=== PATIENT | male | born 1965 | race American Indian/Alaskan Native ===

== ENCOUNTER 2023-01-25 10:39 | Emergency (ER) | payer OTHER, BC ==
[~2023-01-25] VITALS: Ht 152.4 cm; Wt 102.1 kg
[~2023-01-25 10:39] MED LIST: BUTRANS1 EAC1; CELEXA10 MG; GEODON20 MG; LORAZEPAM0.5 MG; NUCYNTA50 MG
== END 2023-01-25 15:32 | disposition home or self-care (01) ==
LOC: ER 10:39
DX: M54.9 Dorsalgia, unspecified (principal)
CPT/HCPCS: 72100; 96372; 99283; J1885; J2360

== ENCOUNTER 2023-08-02 11:21 | Emergency (ER) | payer OTHER ==
[~2023-08-02] VITALS: Ht 177.8 cm; Wt 90.7 kg
== END 2023-08-02 16:33 | disposition home or self-care (01) ==
LOC: ER 11:22
DX: S61.012A Laceration without foreign body of left thumb without damage to nail, initial encounter (principal); W26.0XXA Contact with knife, initial encounter; Y93.89 Activity, other specified; Y92.89 Other specified places as the place of occurrence of the external cause; Y99.8 Other external cause status

== ENCOUNTER 2023-11-24 11:12 | Inpatient (IN) | payer OTHER ==
[~2023-11-24] VITALS: Ht 177.8 cm; Wt 85.3 kg
[~2023-11-24 11:12] MED LIST changes: +APLENZIN174 MG; +CITALOPRAM20 MG/10 M; +CLONAZEPAM0.125 MG PO; +DIVALPROEX SODI25 GM; +EZALLOR SPRINKLE5 MG; +FENOFIBRATE40 MG; +LAMOTRIGINE5 MG; +QUETIAPINE FUM400 M1; +TIROSINT13 MCG; +ZESTRIL2.5 MG
--- NOTE | 2023-11-24 11:45 | NUR ---
PACIENTE MASCULINO ALERTA Y ORIENTADO SOLAMENTE EN PERSONA, REFIERE LA ESPOSA QUE SUFRIO CAIDA EL JEISON Y SE LASTIMO EL BRAZO KARMEN SE OBSERVA EDEMATOSO Y ROJIZO. HOY SE LEVANTO DESORINETADO Y ALUCINANDO. ES DE DR. PARAM MILLER.
--- NOTE | 2023-11-24 11:56 | NUR ---
SE ORIENTA PTE SOBRE TX A SEGUIR, EL CUAL REFIERE ENTENDER. SE COLECTAN MUESTRAS UTILIZANDO UTILIZANDO MEDIDAS ASEPTICAS. PEND CT DE LETICIA. SE HACE ENTREGA DE ENVASE DE MUESTRA DE UA.
[2023-11-24 12:40] LABS: HEMATOCRIT 38.3 % (39.0-48.0); MEAN CELL VOLUME 95.8 fL (80.0-100.00); MEAN CORPUSCULAR HEMOGLOBIN 32.4 pg (27.00-32.0); MEAN CORPUSCULAR HGB CONC 33.9 g/dl (32.0-36.0); PLATELET COUNT 141 K/uL (150-450); RED CELL DISTRIBUTION WIDTH 12.7 % (11.5-14.5)
[2023-11-24 12:56] LABS: ALBUMIN 2.4 gm/dL (3.4-5.0); BILIRUBIN TOTAL 1.73 mg/dL (0.3-1.2); CALCIUM 8.5 mg/dL (8.5-10.1); GFR 13.87; GLOBULINA 3.3 G/DL (2.4-3.5); POTASSIUM 4.02 mEq/L (3.5-5.1); TOTAL PROTEIN 5.7 gm/dL (6.4-8.2)
[2023-11-24 12:57] LABS: CREATININE SERUM 4.43 mg/dL (0.70-1.30)
[2023-11-24 13:00] LABS: URINE APPEARANCE Turbid; URINE BILIRRUBIN Moderate (NEGATIVE); URINE BLOOD Trace; URINE COLOR Dark Yellow; URINE GLUCOSE Negative (NEGATIVE); URINE LEUKOCYTE Small; URINE NITRATE Negative
[2023-11-24 13:01] LABS: URINE BACTERIA 401.9 uL (0.0-1933); URINE EPITHELIAL CELLS 35.2 uL (0.0-38.8); URINE RBC 29.1 uL (0.0-20.8); URINE WBC 119.5 uL (0.0-23.2)
[2023-11-24 13:13] LABS: URINE PROTEIN 100 (NEGATIVE)
[2023-11-24] MEDS ORDERED: 0.9 % SODIUM CHLORIDE 1,000 ML IV SCH ×2 (13:15→18:45)
[2023-11-24] MEDS ORDERED: CEFTRIAXONE SODIUM 2,000 MG VIAL IV ONE (13:15)
[2023-11-24] MEDS ORDERED: CEFTRIAXONE SODIUM 2,000 MG VIAL ONE (13:25)
[2023-11-24] MEDS ORDERED: 0.9 % SODIUM CHLORIDE 1,000 ML IV ONE (18:45)
[2023-11-24] MEDS ORDERED: LAMOTRIGINE PO SCH (18:52)
[2023-11-24] MEDS ORDERED: DIVALPROEX SODIUM 500 MG TAB.ER.24H PO SCH (18:53)
[2023-11-24] MEDS ORDERED: ONDANSETRON HCL 4 MG in 0.9 % SODIUM CHLORIDE 50 ML IV PRN (19:00)
[2023-11-24] MEDS ORDERED: ACETAMINOPHEN 500 MG GEL..CAP PO PRN (19:00)
[2023-11-24 20:40] LABS: MAGNESIUM 2.2 mg/dL (1.8-2.4); PHOSPHOROUS 4.7 mg/dL (2.5-4.9)
[2023-11-24 20:53] LABS: C-REACTIVE PROTEIN 46.4 MG/DL (0.00-0.29)
[2023-11-24 21:31] LABS: INR 1.34; PROTHROMBIN TIME 13.8 SECONDS (9.0-11.5)
[2023-11-24 21:32] LABS: D DIMER 1.07 MG/L; PARTIAL THROMBOPLASTIN TIME 39.6 SECONDS (22.0-34.0)
[2023-11-25] MEDS ORDERED: LEVOTHYROXINE SODIUM 100 MCG TABLET PO SCH (06:00)
[2023-11-25] MEDS ORDERED: CEFTRIAXONE SODIUM 2,000 MG in 0.9 % SODIUM CHLORIDE 100 ML IV SCH (09:00)
[2023-11-25] MEDS ORDERED: FAMOTIDINE/PF 20 MG in 0.9 % SODIUM CHLORIDE 8 ML IV PUSH SCH (09:00)
[2023-11-25] MEDS ORDERED: ENOXAPARIN SODIUM 30 MG/0.3 ML SYRINGE SUBCUTANEO SCH (09:00)
[2023-11-25] MEDS ORDERED: CITALOPRAM PO SCH (09:00)
[2023-11-25] MEDS ORDERED: PATIENTS OWN MEDICATION (MEDICAMENTO EN PISO) PO SCH (09:00)
[2023-11-25] MEDS ORDERED: QUETIAPINE FUMARATE 100 MG TABLET PO SCH ×2 (09:00→21:00)
[2023-11-25] MEDS ORDERED: CLONAZEPAM 1 MG TABLET PO SCH (09:00)
[2023-11-25] MEDS ORDERED: FAMOTIDINE/PF 20 MG/2 ML VIAL ONE (09:36)
[2023-11-25] MEDS ORDERED: 0.9 % SODIUM CHLORIDE 1,000 ML IV SCH (15:00)
[2023-11-25 15:02] LABS: ALBUMIN 1.9 gm/dL (3.4-5.0); BILIRUBIN TOTAL 1.64 mg/dL (0.3-1.2); CREATININE SERUM 2.92 mg/dL (0.70-1.30); GFR 22.44; GLOBULINA 3.1 G/DL (2.4-3.5); MAGNESIUM 2.5 mg/dL (1.8-2.4); PHOSPHOROUS 4.2 mg/dL (2.5-4.9); POTASSIUM 3.9 mEq/L (3.5-5.1)
[2023-11-25] MEDS ORDERED: FF) Daptomycin 500 MG/VIAL IV SCH (17:00)
[2023-11-25] MEDS ORDERED: CEFEPIME HCL 1,000 MG VIAL IV SCH (17:00)
[2023-11-25] MEDS ORDERED: CLINDAMYCIN PHOSPHATE 150 MG/ML (600mg) IV SCH (17:00)
[2023-11-25 18:47] LABS: HEMATOCRIT 37.1 % (39.0-48.0); HEMOGLOBIN 12.5 g/dL (13-16.00); MEAN CELL VOLUME 96.7 fL (80.0-100.00); MEAN CORPUSCULAR HEMOGLOBIN 32.6 pg (27.00-32.0); MEAN CORPUSCULAR HGB CONC 33.8 g/dl (32.0-36.0); RED BLOOD COUNT 3.84 M/uL (4.00-6.00); RED CELL DISTRIBUTION WIDTH 12.5 % (11.5-14.5)
[2023-11-25 19:42] LABS: PLATELET COUNT 107 K/uL (150-450)
[2023-11-26 06:58] LABS: ALBUMIN 1.7 gm/dL (3.4-5.0); BILIRUBIN TOTAL 1.41 mg/dL (0.3-1.2); CALCIUM 8.1 mg/dL (8.5-10.1); CREATININE SERUM 2.44 mg/dL (0.70-1.30); GFR 27.61; GLOBULINA 2.9 G/DL (2.4-3.5); MAGNESIUM 2.8 mg/dL (1.8-2.4); POTASSIUM 3.32 mEq/L (3.5-5.1); TOTAL PROTEIN 4.6 gm/dL (6.4-8.2)
[2023-11-26 07:13] LABS: HEMATOCRIT 35.8 % (39.0-48.0); HEMOGLOBIN 12.2 g/dL (13-16.00); MEAN CELL VOLUME 94.6 fL (80.0-100.00); MEAN CORPUSCULAR HEMOGLOBIN 32.2 pg (27.00-32.0); MEAN CORPUSCULAR HGB CONC 34.1 g/dl (32.0-36.0); RED BLOOD COUNT 3.79 M/uL (4.00-6.00); RED CELL DISTRIBUTION WIDTH 12.8 % (11.5-14.5)
[2023-11-26 07:37] LABS: INR 1.67
[2023-11-26 07:39] LABS: PARTIAL THROMBOPLASTIN TIME 53.1 SECONDS (22.0-34.0); PROTHROMBIN TIME 16.9 SECONDS (9.0-11.5)
[2023-11-26 08:07] LABS: PLATELET COUNT 73 K/uL (150-450)
[2023-11-26] MEDS ORDERED: PATIENTS OWN MEDICATION (MEDICAMENTO EN PISO) PO SCH (09:00)
[2023-11-26] MEDS ORDERED: MEROPENEM 500 MG/VIAL VIAL IV SCH (17:00)
[2023-11-27 07:18] LABS: PH,URINE 5.5 (5.0-8.0); URINE APPEARANCE Clear; URINE BILIRRUBIN Negative (NEGATIVE); URINE BLOOD Small; URINE COLOR Yellow; URINE GLUCOSE Negative (NEGATIVE); URINE LEUKOCYTE Small; URINE NITRATE Negative; URINE PROTEIN Negative (NEGATIVE)
[2023-11-27 07:23] LABS: URINE BACTERIA 65.4 uL (0.0-1933); URINE EPITHELIAL CELLS 6.3 uL (0.0-38.8); URINE RBC 59.5 uL (0.0-20.8); URINE WBC 161.3 uL (0.0-23.2)
[2023-11-27 10:13] LABS: HEMATOCRIT 31.7 % (39.0-48.0); MEAN CELL VOLUME 94.4 fL (80.0-100.00); MEAN CORPUSCULAR HGB CONC 34.4 g/dl (32.0-36.0); RED BLOOD COUNT 3.36 M/uL (4.00-6.00); RED CELL DISTRIBUTION WIDTH 13.3 % (11.5-14.5)
[2023-11-27 10:14] LABS: ALBUMIN 1.3 gm/dL (3.4-5.0); BILIRUBIN TOTAL 1.34 mg/dL (0.3-1.2); CALCIUM 8.4 mg/dL (8.5-10.1); CREATININE SERUM 1.81 mg/dL (0.70-1.30); GFR 38.98; POTASSIUM 3.72 mEq/L (3.5-5.1); TOTAL PROTEIN 4.3 gm/dL (6.4-8.2)
[2023-11-27 11:22] LABS: HEMOGLOBIN 10.9 g/dL (13-16.00); MEAN CORPUSCULAR HEMOGLOBIN 32.4 pg (27.00-32.0); PLATELET COUNT 45 K/uL (150-450)
[2023-11-27] MEDS ORDERED: PANTOPRAZOLE SODIUM 40 MG/VIAL VIAL IV SCH (17:00)
[2023-11-27] MEDS ORDERED: FF) Daptomycin 500 MG/VIAL IV SCH (18:00)
[2023-11-28 09:19] LABS: HEMOGLOBIN 11.7 g/dL (13-16.00); MEAN CELL VOLUME 96.7 fL (80.0-100.00); MEAN CORPUSCULAR HEMOGLOBIN 32.4 pg (27.00-32.0); MEAN CORPUSCULAR HGB CONC 33.5 g/dl (32.0-36.0); RED BLOOD COUNT 3.61 M/uL (4.00-6.00); RED CELL DISTRIBUTION WIDTH 13.4 % (11.5-14.5)
[2023-11-28 11:28] LABS: PLATELET COUNT 36 K/uL (150-450)
[2023-11-29 09:52] LABS: ALBUMIN 1.4 gm/dL (3.4-5.0); BILIRUBIN TOTAL 1.43 mg/dL (0.3-1.2); CALCIUM 8.6 mg/dL (8.5-10.1); CREATININE SERUM 2.15 mg/dL (0.70-1.30); GFR 31.95; POTASSIUM 3.12 mEq/L (3.5-5.1); TOTAL PROTEIN 4.4 gm/dL (6.4-8.2)
[2023-11-29 10:26] LABS: HEMOGLOBIN 10.9 g/dL (13-16.00); MEAN CELL VOLUME 94.7 fL (80.0-100.00); MEAN CORPUSCULAR HEMOGLOBIN 32.2 pg (27.00-32.0); RED BLOOD COUNT 3.38 M/uL (4.00-6.00); RED CELL DISTRIBUTION WIDTH 13.5 % (11.5-14.5)
[2023-11-29 11:33] LABS: PLATELET COUNT 33 K/uL (150-450)
[2023-11-29] MEDS ORDERED: RINGERS SOLUTION,LACTATED 1,000 ML IV SCH (16:15)
[2023-11-29] MEDS ORDERED: AMINO ACIDS/PROTEIN HYDROLYS 30 ML BLIST.PACK PO SCH (20:49)
[2023-11-29] MEDS ORDERED: FF) Daptomycin 500 MG/VIAL IV SCH (21:00)
[2023-11-30 09:19] LABS: HEMATOCRIT 29.5 % (39.0-48.0); HEMOGLOBIN 10.2 g/dL (13-16.00); MEAN CELL VOLUME 94.2 fL (80.0-100.00); MEAN CORPUSCULAR HEMOGLOBIN 32.5 pg (27.00-32.0); MEAN CORPUSCULAR HGB CONC 34.5 g/dl (32.0-36.0); RED BLOOD COUNT 3.13 M/uL (4.00-6.00); RED CELL DISTRIBUTION WIDTH 13.3 % (11.5-14.5)
[2023-11-30 09:42] LABS: ALBUMIN 1.6 gm/dL (3.4-5.0); BILIRUBIN TOTAL 1.32 mg/dL (0.3-1.2); CALCIUM 8.5 mg/dL (8.5-10.1); CREATININE SERUM 1.89 mg/dL (0.70-1.30); GFR 37.08; GLOBULINA 3.4 G/DL (2.4-3.5); MAGNESIUM 1.8 mg/dL (1.8-2.4)
[2023-11-30 09:44] LABS: LDH 255 U/L (87-241); PHOSPHOKINASE CREATININE 33 U/L (39-308)
[2023-11-30 10:01] LABS: POTASSIUM 2.99 mEq/L (3.5-5.1)
[2023-11-30 11:06] LABS: PLATELET COUNT 113 K/uL (150-450)
[2023-11-30] MEDS ORDERED: POTASSIUM CHLORIDE IN WATER 100 ML IV NR (11:30)
[2023-11-30] MEDS ORDERED: Cyanocobalamin/Mecobalamin 1 TAB.SL SL SCH (12:00)
[2023-11-30 12:02] LABS: HEMATOCRIT 30.4 % (39.0-48.0); HEMOGLOBIN 10.4 g/dL (13-16.00); MEAN CELL VOLUME 94.1 fL (80.0-100.00); MEAN CORPUSCULAR HEMOGLOBIN 32.2 pg (27.00-32.0); MEAN CORPUSCULAR HGB CONC 34.2 g/dl (32.0-36.0); RED BLOOD COUNT 3.23 M/uL (4.00-6.00); RED CELL DISTRIBUTION WIDTH 13.3 % (11.5-14.5)
[2023-11-30 12:04] LABS: PLATELET COUNT 120 K/uL (150-450)
[2023-11-30] MEDS ORDERED: VITAMIN B COMPLEX 1 EACH PO SCH (17:00)
[2023-11-30] MEDS ORDERED: THIAMINE HCL 100 MG TABLET PO SCH (17:00)
[2023-12-01 08:20] LABS: HEMATOCRIT 28.1 % (39.0-48.0); HEMOGLOBIN 9.6 g/dL (13-16.00); MEAN CELL VOLUME 95.6 fL (80.0-100.00); MEAN CORPUSCULAR HEMOGLOBIN 32.7 pg (27.00-32.0); MEAN CORPUSCULAR HGB CONC 34.2 g/dl (32.0-36.0); RED BLOOD COUNT 2.94 M/uL (4.00-6.00); RED CELL DISTRIBUTION WIDTH 12.9 % (11.5-14.5)
[2023-12-01 09:01] LABS: INR 1.76
[2023-12-01 09:05] LABS: PROTHROMBIN TIME 17.7 SECONDS (9.0-11.5)
[2023-12-01 09:06] LABS: PARTIAL THROMBOPLASTIN TIME 46.9 SECONDS (22.0-34.0)
[2023-12-01 09:07] LABS: FERRITIN 1656.9 NG/ML (26-388)
[2023-12-01 09:16] LABS: PLATELET COUNT 198 K/uL (150-450)
[2023-12-01 09:28] LABS: ALBUMIN 1.4 gm/dL (3.4-5.0); CALCIUM 8.1 mg/dL (8.5-10.1); CREATININE SERUM 1.39 mg/dL (0.70-1.30); GFR 52.86; MAGNESIUM 1.7 mg/dL (1.8-2.4); PHOSPHOROUS 2.8 mg/dL (2.5-4.9); POTASSIUM 3.33 mEq/L (3.5-5.1)
[2023-12-01 10:15] LABS: FOLIC ACID 15.39 ng/ml (4.78-20)
[2023-12-01] MEDS ORDERED: MAGNESIUM SULFATE IN WATER 2 GM/50 ML PIGGYBAG IV NR (15:45)
[2023-12-01] MEDS ORDERED: POTASSIUM CHLORIDE IN WATER 100 ML IV NR (15:45)
[2023-12-01] MEDS ORDERED: SOD FERRIC GLUC COMPLX/SUCROSE 62.5 MG in 0.9 % SODIUM CHLORIDE 50 ML IV SCH (17:00)
[2023-12-01] MEDS ORDERED: LACTOBACILLUS ACIDOPHILUS 1 CAP CAP PO SCH (17:42)
[2023-12-02 08:37] LABS: MEAN CELL VOLUME 95.2 fL (80.0-100.00); PLATELET COUNT 289 K/uL (150-450); RED BLOOD COUNT 2.47 M/uL (4.00-6.00)
[2023-12-02 08:42] LABS: HEMATOCRIT 23.5 % (39.0-48.0); MEAN CORPUSCULAR HEMOGLOBIN 33.1 pg (27.00-32.0)
[2023-12-02 08:46] LABS: HEMOGLOBIN 8.2 g/dL (13-16.00)
[2023-12-02] MEDS ORDERED: PANTOPRAZOLE SODIUM 40 MG TABLET.DR PO SCH (09:00)
[2023-12-02 09:04] LABS: ALBUMIN 1.3 gm/dL (3.4-5.0); BILIRUBIN TOTAL 0.74 mg/dL (0.3-1.2); CALCIUM 8.2 mg/dL (8.5-10.1); CREATININE SERUM 1.13 mg/dL (0.70-1.30); GFR 67.13; GLOBULINA 3.9 G/DL (2.4-3.5); MAGNESIUM 1.9 mg/dL (1.8-2.4); PHOSPHOROUS 2.9 mg/dL (2.5-4.9); POTASSIUM 3.52 mEq/L (3.5-5.1); TOTAL PROTEIN 5.2 gm/dL (6.4-8.2)
[2023-12-02] MEDS ORDERED: FUROsemide 20 MG/2 ML VIAL IV SCH (10:30)
[2023-12-02] MEDS ORDERED: HYDROCORTISONE 2.5% 30 GM TUBE RECTAL SCH (14:27)
[2023-12-02 14:40] LABS: PLATELET ESTIMATE NORMAL (NORMAL)
[2023-12-03 15:10] LABS: Glycopro Negative (Negative); HL Negative (Negative); la Positive (Negative); lb Negative (Negative); llb Negative (Negative)
[2023-12-03] MEDS ORDERED: MEROPENEM 500 MG/VIAL VIAL IV SCH (18:00)
[2023-12-03] MEDS ORDERED: TRAMADOL HCL 50 MG TABLET PO PRN (22:00)
[2023-12-03] MEDS ORDERED: ACETAMINOPHEN 500 MG GEL..CAP PO PRN (22:00)
[2023-12-04 14:59] LABS: HEMATOCRIT 30.2 % (39.0-48.0); HEMOGLOBIN 10.3 g/dL (13-16.00); MEAN CELL VOLUME 92.7 fL (80.0-100.00); MEAN CORPUSCULAR HEMOGLOBIN 31.7 pg (27.00-32.0); MEAN CORPUSCULAR HGB CONC 34.2 g/dl (32.0-36.0); PLATELET COUNT 476 K/uL (150-450); RED BLOOD COUNT 3.25 M/uL (4.00-6.00); RED CELL DISTRIBUTION WIDTH 14.5 % (11.5-14.5)
[2023-12-04 19:51] LABS: ALBUMIN 1.6 gm/dL (3.4-5.0); BILIRUBIN TOTAL 0.62 mg/dL (0.3-1.2); CALCIUM 8.6 mg/dL (8.5-10.1); CREATININE SERUM 1.01 mg/dL (0.70-1.30); GFR 76.41; GLOBULINA 5.1 G/DL (2.4-3.5); MAGNESIUM 1.5 mg/dL (1.8-2.4); PHOSPHOROUS 3.1 mg/dL (2.5-4.9); POTASSIUM 3.75 mEq/L (3.5-5.1); TOTAL PROTEIN 6.7 gm/dL (6.4-8.2)
[2023-12-05 12:50] LABS: HEMATOCRIT 30.4 % (39.0-48.0); HEMOGLOBIN 10.5 g/dL (13-16.00); MEAN CELL VOLUME 91.6 fL (80.0-100.00); MEAN CORPUSCULAR HEMOGLOBIN 31.7 pg (27.00-32.0); MEAN CORPUSCULAR HGB CONC 34.6 g/dl (32.0-36.0); PLATELET COUNT 539 K/uL (150-450); RED BLOOD COUNT 3.32 M/uL (4.00-6.00); RED CELL DISTRIBUTION WIDTH 14.5 % (11.5-14.5)
[2023-12-05 13:14] LABS: ALBUMIN 1.6 gm/dL (3.4-5.0); BILIRUBIN TOTAL 0.72 mg/dL (0.3-1.2); CALCIUM 9.1 mg/dL (8.5-10.1); CREATININE SERUM 0.81 mg/dL (0.70-1.30); GFR 98.57; GLOBULINA 5.4 G/DL (2.4-3.5); MAGNESIUM 1.5 mg/dL (1.8-2.4); PHOSPHOROUS 3.2 mg/dL (2.5-4.9); POTASSIUM 4.05 mEq/L (3.5-5.1)
[2023-12-05] MEDS ORDERED: MAGNESIUM SULFATE IN WATER 50 ML IV NR (15:00)
[2023-12-05] MEDS ORDERED: GABAPENTIN 300 MG CAPSULE PO SCH (17:00)
[2023-12-07] MEDS ORDERED: TRAMADOL HCL 50 MG TABLET PO SCH (12:00)
[2023-12-08 07:45] LABS: HEMATOCRIT 29.8 % (39.0-48.0); HEMOGLOBIN 10.2 g/dL (13-16.00); MEAN CELL VOLUME 93.3 fL (80.0-100.00); MEAN CORPUSCULAR HEMOGLOBIN 31.9 pg (27.00-32.0); MEAN CORPUSCULAR HGB CONC 34.2 g/dl (32.0-36.0); PLATELET COUNT 574 K/uL (150-450); RED CELL DISTRIBUTION WIDTH 14.2 % (11.5-14.5)
[2023-12-08 08:41] LABS: ALBUMIN 1.7 gm/dL (3.4-5.0); BILIRUBIN TOTAL 0.7 mg/dL (0.3-1.2); CALCIUM 9.1 mg/dL (8.5-10.1); CREATININE SERUM 0.69 mg/dL (0.70-1.30); GFR 118.61; GLOBULINA 5.7 G/DL (2.4-3.5); POTASSIUM 4.06 mEq/L (3.5-5.1); TOTAL PROTEIN 7.4 gm/dL (6.4-8.2)
[2023-12-08 08:44] LABS: MAGNESIUM 1.4 mg/dL (1.8-2.4)
[2023-12-08] MEDS ORDERED: MAGNESIUM SULFATE IN WATER 50 ML IV NR (10:30)
[2023-12-09] MEDS ORDERED: CLINDAMYCIN PHOSPHATE 900 MG in 0.9 % SODIUM CHLORIDE 100 ML IV SCH (14:13)
[2023-12-10 08:39] LABS: HEMATOCRIT 28.2 % (39.0-48.0); HEMOGLOBIN 9.7 g/dL (13-16.00); MEAN CELL VOLUME 91.9 fL (80.0-100.00); MEAN CORPUSCULAR HEMOGLOBIN 31.4 pg (27.00-32.0); MEAN CORPUSCULAR HGB CONC 34.2 g/dl (32.0-36.0); PLATELET COUNT 421 K/uL (150-450); RED BLOOD COUNT 3.07 M/uL (4.00-6.00); RED CELL DISTRIBUTION WIDTH 13.6 % (11.5-14.5)
[2023-12-10 09:28] LABS: ALBUMIN 1.7 gm/dL (3.4-5.0); BILIRUBIN TOTAL 0.7 mg/dL (0.3-1.2); CALCIUM 8.8 mg/dL (8.5-10.1); CREATININE SERUM 0.6 mg/dL (0.70-1.30); GFR 139.37; GLOBULINA 5.2 G/DL (2.4-3.5); PHOSPHOROUS 2.7 mg/dL (2.5-4.9); POTASSIUM 3.71 mEq/L (3.5-5.1); TOTAL PROTEIN 6.9 gm/dL (6.4-8.2)
[2023-12-10 09:42] LABS: MAGNESIUM 1.3 mg/dL (1.8-2.4)
[2023-12-10] MEDS ORDERED: MAGNESIUM SULFATE/D5W 1GM/100ML PIGGYBAG IV NR (10:00)
[2023-12-10] MEDS ORDERED: VANCOMYCIN HCL 5 MG/ML REDILUIDO IV SCH (21:00)
[2023-12-11] MEDS ORDERED: ACETAMINOPHEN 500 MG GEL..CAP PO PRN (18:30)
[2023-12-11 21:41] LABS: PH,URINE 7.5 (5.0-8.0); URINE APPEARANCE Clear; URINE BILIRRUBIN Negative (NEGATIVE); URINE BLOOD Negative; URINE COLOR Yellow; URINE GLUCOSE Negative (NEGATIVE); URINE LEUKOCYTE Negative; URINE NITRATE Negative; URINE PROTEIN Negative (NEGATIVE)
[2023-12-11 22:02] LABS: URINE BACTERIA 30.2 uL (0.0-1933); URINE EPITHELIAL CELLS 2.9 uL (0.0-38.8); URINE RBC 58.4 uL (0.0-20.8); URINE WBC 11.8 uL (0.0-23.2)
[2023-12-12 08:31] LABS: HEMATOCRIT 28.6 % (39.0-48.0); HEMOGLOBIN 9.8 g/dL (13-16.00); MEAN CELL VOLUME 91.1 fL (80.0-100.00); MEAN CORPUSCULAR HEMOGLOBIN 31.2 pg (27.00-32.0); MEAN CORPUSCULAR HGB CONC 34.2 g/dl (32.0-36.0); PLATELET COUNT 386 K/uL (150-450); RED BLOOD COUNT 3.14 M/uL (4.00-6.00); RED CELL DISTRIBUTION WIDTH 13.6 % (11.5-14.5)
[2023-12-13] MEDS ORDERED: CEFTRIAXONE SODIUM 2,000 MG VIAL IV SCH (13:09)
[2023-12-13] MEDS ORDERED: CLONAZEPAM 1 MG TABLET PO SCH (14:19)
[2023-12-13] MEDS ORDERED: GABAPENTIN 600 MG TABLET PO SCH (17:00)
[2023-12-14 08:56] LABS: HEMATOCRIT 28.5 % (39.0-48.0); HEMOGLOBIN 10.2 g/dL (13-16.00); MEAN CELL VOLUME 90.7 fL (80.0-100.00); MEAN CORPUSCULAR HEMOGLOBIN 32.3 pg (27.00-32.0); MEAN CORPUSCULAR HGB CONC 35.6 g/dl (32.0-36.0); PLATELET COUNT 314 K/uL (150-450); RED BLOOD COUNT 3.15 M/uL (4.00-6.00); RED CELL DISTRIBUTION WIDTH 13.8 % (11.5-14.5)
[2023-12-14 09:31] LABS: ALBUMIN 1.6 gm/dL (3.4-5.0); BILIRUBIN TOTAL 0.36 mg/dL (0.3-1.2); CALCIUM 8.7 mg/dL (8.5-10.1); CREATININE SERUM 0.58 mg/dL (0.70-1.30); GFR 144.93; GLOBULINA 5.1 G/DL (2.4-3.5); MAGNESIUM 1.7 mg/dL (1.8-2.4); PHOSPHOROUS 3.9 mg/dL (2.5-4.9); POTASSIUM 3.37 mEq/L (3.5-5.1); TOTAL PROTEIN 6.7 gm/dL (6.4-8.2)
[2023-12-14 09:34] LABS: C-REACTIVE PROTEIN 4.76 MG/DL (0.00-0.29)
[2023-12-14] MEDS ORDERED: POTASSIUM CHLORIDE 20MEQ/100ML H2O PB IV NR (10:00)
[2023-12-14] MEDS ORDERED: MAGNESIUM SULFATE/D5W 100 ML IV NR (10:00)
[2023-12-14] MEDS ORDERED: TRAMADOL HCL 50 MG TABLET PO SCH (12:00)
[2023-12-15] MEDS ORDERED: CEFTRIAXONE SODIUM 2,000 MG VIAL IV SCH (21:00)
[2023-12-16 10:26] LABS: ALBUMIN 1.9 gm/dL (3.4-5.0); BILIRUBIN TOTAL 0.37 mg/dL (0.3-1.2); C-REACTIVE PROTEIN 2.42 MG/DL (0.00-0.29); CALCIUM 9.2 mg/dL (8.5-10.1); CREATININE SERUM 0.72 mg/dL (0.70-1.30); GFR 112.93; GLOBULINA 5.5 G/DL (2.4-3.5); MAGNESIUM 1.6 mg/dL (1.8-2.4); PHOSPHOROUS 3.1 mg/dL (2.5-4.9); POTASSIUM 3.91 mEq/L (3.5-5.1); TOTAL PROTEIN 7.4 gm/dL (6.4-8.2)
[2023-12-17] MEDS ORDERED: TRAMADOL HCL 50 MG TABLET PO SCH (07:00)
[2023-12-17 07:32] LABS: HEMATOCRIT 26.6 % (39.0-48.0); MEAN CELL VOLUME 90.7 fL (80.0-100.00); MEAN CORPUSCULAR HGB CONC 35.1 g/dl (32.0-36.0); PLATELET COUNT 276 K/uL (150-450); RED BLOOD COUNT 2.93 M/uL (4.00-6.00); RED CELL DISTRIBUTION WIDTH 14.2 % (11.5-14.5)
[2023-12-17 08:06] LABS: ALBUMIN 1.6 gm/dL (3.4-5.0); BILIRUBIN TOTAL 0.27 mg/dL (0.3-1.2); CALCIUM 8.4 mg/dL (8.5-10.1); CREATININE SERUM 0.8 mg/dL (0.70-1.30); GLOBULINA 4.7 G/DL (2.4-3.5); PHOSPHOROUS 3.6 mg/dL (2.5-4.9); TOTAL PROTEIN 6.3 gm/dL (6.4-8.2)
[2023-12-17 08:26] LABS: MAGNESIUM 1.4 mg/dL (1.8-2.4)
[2023-12-17 08:27] LABS: POTASSIUM 2.9 mEq/L (3.5-5.1)
[2023-12-17 08:39] LABS: HEMOGLOBIN 9.3 g/dL (13-16.00); MEAN CORPUSCULAR HEMOGLOBIN 31.7 pg (27.00-32.0)
[2023-12-17] MEDS ORDERED: MAGNESIUM SULFATE/D5W 1GM/100ML PIGGYBAG IV NR (08:45)
[2023-12-17] MEDS ORDERED: POTASSIUM CHLORIDE IN WATER 40 MEQ/100 ML PIGGYBAG IV SCH (09:00)
[2023-12-17] MEDS ORDERED: SOD FERRIC GLUC COMPLX/SUCROSE 62.5 MG/5 ML AMPUL IV SCH (12:00)
[2023-12-17 14:43] LABS: ob NEGATIVE (NEGATIVE)
[2023-12-18] MEDS ORDERED: MAGNESIUM SULFATE IN WATER 4 GM/100 ML PIGGYBACK IV ONE (18:45)
[2023-12-18] MEDS ORDERED: VANCOMYCIN HCL 5 MG/ML REDILUIDO IV SCH (21:00)
[2023-12-19 08:38] LABS: HEMATOCRIT 29.9 % (39.0-48.0); HEMOGLOBIN 10.2 g/dL (13-16.00); MEAN CELL VOLUME 92.3 fL (80.0-100.00); MEAN CORPUSCULAR HEMOGLOBIN 31.4 pg (27.00-32.0); PLATELET COUNT 354 K/uL (150-450); RED BLOOD COUNT 3.24 M/uL (4.00-6.00); RED CELL DISTRIBUTION WIDTH 14.3 % (11.5-14.5)
[2023-12-19 08:39] LABS: ALBUMIN 1.9 gm/dL (3.4-5.0); BILIRUBIN TOTAL 0.28 mg/dL (0.3-1.2); CALCIUM 9.1 mg/dL (8.5-10.1); CREATININE SERUM 0.7 mg/dL (0.70-1.30); GFR 116.66; GLOBULINA 5.2 G/DL (2.4-3.5); MAGNESIUM 1.9 mg/dL (1.8-2.4); PHOSPHOROUS 4.2 mg/dL (2.5-4.9); POTASSIUM 3.77 mEq/L (3.5-5.1); TOTAL PROTEIN 7.1 gm/dL (6.4-8.2)
[2023-12-20] MEDS ORDERED: NIFEDIPINE 30 MG TAB.SA.OSM PO STA (11:13)
[2023-12-20] MEDS ORDERED: EZALLOR SPRINKLE5 MG PO ×2 (17:33)
[2023-12-20] MEDS ORDERED: FENOFIBRATE40 MG PO ×2 (17:33)
[2023-12-20] MEDS ORDERED: ZESTRIL2.5 MG PO ×2 (17:33)
[2023-12-20] MEDS ORDERED: NEURONTIN600 MG PO ×2 (17:35)
[2023-12-20] MEDS ORDERED: DEPAKOTE ER500 MG PO ×2 (17:35)
[2023-12-20] MEDS ORDERED: BUPROPION HCL100 MG PO ×2 (17:37)
[2023-12-20] MEDS ORDERED: FELODIPINE ER2.5 MG PO ×2 (17:39)
== END 2023-12-20 19:03 | disposition home or self-care (01) | DRG 871 ==
LOC: ER 11:13 → MEDI 19:57 → MEDJ 11-28 18:45
PROVIDERS: General Practice; Internal Medicine; Internal Medicine Hematology & Oncology; Internal Medicine Infectious Disease; Internal Medicine Nephrology; ADMIT Internal Medicine; ATTEND Internal Medicine
PROC: 4A12X4Z Monitoring of Cardiac Electrical Activity, External Approach (ICD-10-PCS; 2023-11-24)
PROC: B020ZZZ Computerized Tomography (CT Scan) of Brain (ICD-10-PCS; 2023-11-24)
PROC: BW21ZZZ Computerized Tomography (CT Scan) of Abdomen and Pelvis (ICD-10-PCS; 2023-11-24)
PROC: B54NZZZ Ultrasonography of Left Upper Extremity Veins (ICD-10-PCS; 2023-11-24)
PROC: BP4HZZZ Ultrasonography of Left Elbow (ICD-10-PCS; 2023-11-25)
PROC: B24BYZZ Ultrasonography of Heart with Aorta using Other Contrast (ICD-10-PCS; 2023-11-25)
PROC: 02HV33Z Insertion of Infusion Device into Superior Vena Cava, Percutaneous Approach (ICD-10-PCS; principal; 2023-11-26)
PROC: 30243N1 Transfusion of Nonautologous Red Blood Cells into Central Vein, Percutaneous Approach (ICD-10-PCS; 2023-11-29)
PROC: BP3 Imaging, Non-Axial Upper Bones, Magnetic Resonance Imaging (MRI) (ICD-10-PCS; 2023-12-08)
PROC: BW28ZZZ Computerized Tomography (CT Scan) of Head (ICD-10-PCS; 2023-12-18)
DX: A41.9 Sepsis, unspecified organism (principal); N17.0 Acute kidney failure with tubular necrosis; N17.9 Acute kidney failure, unspecified; M62.82 Rhabdomyolysis; L03.114 Cellulitis of left upper limb; D69.3 Immune thrombocytopenic purpura; R65.10 Systemic inflammatory response syndrome (SIRS) of non-infectious origin without acute organ dysfunction; I95.9 Hypotension, unspecified; D72.829 Elevated white blood cell count, unspecified; D69.6 Thrombocytopenia, unspecified; I10 Essential (primary) hypertension; D53.0 Protein deficiency anemia; F31.9 Bipolar disorder, unspecified

== ENCOUNTER 2023-12-24 21:41 | Inpatient (IN) | payer OTHER ==
[~2023-12-24] VITALS: Ht 177.8 cm; Wt 76.7 kg
[~2023-12-24 21:41] MED LIST changes: +BUPROPION HCL100 MG PO; +DEPAKOTE ER500 MG PO; +EZALLOR SPRINKLE5 MG PO; +FELODIPINE ER2.5 MG PO; +FENOFIBRATE40 MG PO; +NEURONTIN600 MG PO; +ZESTRIL2.5 MG PO
--- NOTE | 2023-12-24 21:54 | NUR ---
SE RECIBE PTE ALERTA Y ORIENTADO X3 EL MISMO REFIERE QUE HACE 3 ARMENDARIZ FUE HOSPITALIZADO POR SEPSIS AL YAZMIN DE HOY PRESENTA EL BRAZO KARMEN INFLAMADO Y CON ENROJECIMIENTO. DR MILLER HABLO CON ELLOS Y LE REFIRIO VENIR A PREM. SE IVETTE PTE EN PASILLO.
[2023-12-24] MEDS ORDERED: 0.9 % SODIUM CHLORIDE 1,000 ML IV SCH (22:15)
[2023-12-24] MEDS ORDERED: VANCOMYCIN HCL 1,000 MG VIAL IV ONE (22:15)
[2023-12-24] MEDS ORDERED: KETOROLAC TROMETHAMINE 30 MG VIAL IV ONE (22:15)
[2023-12-24] MEDS ORDERED: KETOROLAC TROMETHAMINE 30 MG VIAL ONE (22:44)
[2023-12-24] MEDS ORDERED: VANCOMYCIN HCL 1,000 MG VIAL ONE (22:44)
[2023-12-24 23:24] LABS: HEMATOCRIT 27.3 % (39.0-48.0); HEMOGLOBIN 9.3 g/dL (13-16.00); MEAN CELL VOLUME 91.9 fL (80.0-100.00); MEAN CORPUSCULAR HEMOGLOBIN 31.4 pg (27.00-32.0); MEAN CORPUSCULAR HGB CONC 34.1 g/dl (32.0-36.0); PLATELET COUNT 325 K/uL (150-450); RED BLOOD COUNT 2.97 M/uL (4.00-6.00); RED CELL DISTRIBUTION WIDTH 15.2 % (11.5-14.5)
[2023-12-24 23:33] LABS: ERYTHROCYTE SEDIMENTATION RATE 73 mm/hr
[2023-12-25] MEDS ORDERED: hydrALAZINE HCL 20 MG VIAL IV PRN (00:15)
[2023-12-25] MEDS ORDERED: 0.9 % SODIUM CHLORIDE 1,000 ML IV SCH (00:15)
[2023-12-25] MEDS ORDERED: ONDANSETRON HCL 4 MG in 0.9 % SODIUM CHLORIDE 50 ML IV PRN (00:15)
[2023-12-25] MEDS ORDERED: ACETAMINOPHEN 500 MG GEL..CAP PO PRN (00:15)
[2023-12-25 01:18] LABS: ALBUMIN 2.1 gm/dL (3.4-5.0); BILIRUBIN TOTAL 0.28 mg/dL (0.3-1.2); CALCIUM 9.4 mg/dL (8.5-10.1); CREATININE SERUM 0.9 mg/dL (0.70-1.30); GFR 87.29; GLOBULINA 5.3 G/DL (2.4-3.5); POTASSIUM 3.32 mEq/L (3.5-5.1); TOTAL PROTEIN 7.4 gm/dL (6.4-8.2)
[2023-12-25] MEDS ORDERED: LEVOTHYROXINE SODIUM 100 MCG TABLET PO SCH (06:00)
[2023-12-25 08:02] LABS: HEMATOCRIT 28.4 % (39.0-48.0); HEMOGLOBIN 9.7 g/dL (13-16.00); MEAN CELL VOLUME 92.9 fL (80.0-100.00); MEAN CORPUSCULAR HEMOGLOBIN 31.8 pg (27.00-32.0); MEAN CORPUSCULAR HGB CONC 34.2 g/dl (32.0-36.0); PLATELET COUNT 324 K/uL (150-450); RED BLOOD COUNT 3.06 M/uL (4.00-6.00)
[2023-12-25 08:37] LABS: ALBUMIN 1.8 gm/dL (3.4-5.0); BILIRUBIN TOTAL 0.33 mg/dL (0.3-1.2); BILIRUBIN,CONJUGATED 0.16 mg/dL (0.0-0.2); BILIRUBIN,UNCONJUGATED 0.17 mg/dL (0.0-0.6); CALCIUM 9.2 mg/dL (8.5-10.1); CHOL HDL RATIO 3.9 (0-5.0); CREATININE SERUM 0.69 mg/dL (0.70-1.30); GFR 118.61; GLOBULINA 4.5 G/DL (2.4-3.5); POTASSIUM 3.63 mEq/L (3.5-5.1); TOTAL PROTEIN 6.3 gm/dL (6.4-8.2)
[2023-12-25 08:44] LABS: INR 1.12; PARTIAL THROMBOPLASTIN TIME 31.3 SECONDS (22.0-34.0); PROTHROMBIN TIME 11.7 SECONDS (9.0-11.5)
[2023-12-25 08:56] LABS: C-REACTIVE PROTEIN 2.33 MG/DL (0.00-0.29)
[2023-12-25] MEDS ORDERED: VANCOMYCIN HCL 1,000 MG VIAL IV SCH (09:00)
[2023-12-25] MEDS ORDERED: DIVALPROEX SODIUM 500 MG TAB.ER.24H PO SCH (09:00)
[2023-12-25] MEDS ORDERED: PATIENTS OWN MEDICATION (MEDICAMENTO EN PISO) PO SCH ×4 (09:00→17:00)
[2023-12-25] MEDS ORDERED: ENOXAPARIN SODIUM 40 MG/0.4 ML SYRINGE SUBCUTANEO SCH (09:00)
[2023-12-25] MEDS ORDERED: CLONAZEPAM 1 MG TABLET PO SCH (09:00)
[2023-12-25] MEDS ORDERED: LISINOPRIL 2.5 MG TABLET PO SCH (09:00)
[2023-12-25] MEDS ORDERED: GABAPENTIN 300 MG CAPSULE PO SCH (09:00)
[2023-12-25] MEDS ORDERED: FAMOTIDINE/PF 20 MG in 0.9 % SODIUM CHLORIDE 8 ML IV PUSH SCH (09:00)
[2023-12-25] MEDS ORDERED: TRAMADOL HCL 50 MG TABLET PO SCH (09:00)
[2023-12-25 09:16] LABS: ERYTHROCYTE SEDIMENTATION RATE 82 mm/hr
[2023-12-25] MEDS ORDERED: CLINDAMYCIN PHOSPHATE 150 MG/ML (600mg) IV SCH (13:00)
[2023-12-25] MEDS ORDERED: FAMOTIDINE/PF 20 MG/2 ML VIAL ONE (16:14)
[2023-12-25] MEDS ORDERED: CEFTRIAXONE SODIUM 2,000 MG VIAL IV SCH (17:00)
[2023-12-25] MEDS ORDERED: QUETIAPINE FUMARATE 100 MG TABLET PO SCH (17:00)
[2023-12-25] MEDS ORDERED: LACTOBACILLUS ACIDOPHILUS 1 CAP CAP PO SCH (17:00)
[2023-12-25] MEDS ORDERED: VANCOMYCIN HCL 5 MG/ML REDILUIDO IV SCH (21:00)
[2023-12-26] MEDS ORDERED: FAMOTIDINE/PF 20 MG/2 ML VIAL ONE (08:34)
[2023-12-26] MEDS ORDERED: CLINDAMYCIN PHOSPHATE 150 MG/ML (900mg) IV SCH (13:00)
[2023-12-26] MEDS ORDERED: HALOPERIDOL LACTATE 5 MG/ML AMPUL IM PRN (14:00)
[2023-12-27 06:34] LABS: HEMATOCRIT 27.6 % (39.0-48.0); HEMOGLOBIN 9.3 g/dL (13-16.00); MEAN CELL VOLUME 91.8 fL (80.0-100.00); MEAN CORPUSCULAR HGB CONC 33.8 g/dl (32.0-36.0); PLATELET COUNT 276 K/uL (150-450); RED CELL DISTRIBUTION WIDTH 15.2 % (11.5-14.5)
[2023-12-27 06:59] LABS: ALBUMIN 1.9 gm/dL (3.4-5.0); BILIRUBIN TOTAL 0.4 mg/dL (0.3-1.2); CALCIUM 8.9 mg/dL (8.5-10.1); CREATININE SERUM 0.82 mg/dL (0.70-1.30); GFR 97.19; GLOBULINA 4.1 G/DL (2.4-3.5); POTASSIUM 3.28 mEq/L (3.5-5.1)
[2023-12-27] MEDS ORDERED: FAMOTIDINE/PF 20 MG/2 ML VIAL ONE (08:52)
[2023-12-27] MEDS ORDERED: LISINOPRIL 5 MG TABLET PO SCH (09:00)
[2023-12-27 12:36] LABS: URINE APPEARANCE Clear; URINE BILIRRUBIN Negative (NEGATIVE); URINE BLOOD Negative; URINE COLOR Yellow; URINE GLUCOSE Negative (NEGATIVE); URINE LEUKOCYTE Negative; URINE NITRATE Negative; URINE PROTEIN Negative (NEGATIVE); URINE UROBILINOGEN 0.2 E.U./dl
[2023-12-27 12:40] LABS: URINE RBC 3.2 uL (0.0-20.8); URINE WBC 8.4 uL (0.0-23.2)
[2023-12-27 12:42] LABS: URINE BACTERIA 3.7 uL (0.0-1933)
[2023-12-27] MEDS ORDERED: LORazepam 2 MG/ML VIAL IV PUSH PRN (13:45)
[2023-12-27] MEDS ORDERED: HALOPERIDOL LACTATE 5 MG/ML AMPUL IM SCH (21:00)
[2023-12-27] MEDS ORDERED: FAMOtidine 20 MG TABLET PO SCH (21:00)
[2023-12-28] MEDS ORDERED: DEXTROSE 5 %-0.45 % SOD CHLORD 1,000 ML IV SCH (11:30)
[2023-12-28] MEDS ORDERED: POTASSIUM CHLORIDE IN WATER 40 MEQ/100 ML PIGGYBAG IV NR (11:30)
[2023-12-28] MEDS ORDERED: METHYLPREDNISOLONE SOD SUCC 40 MG VIAL IV SCH (21:00)
[2023-12-29] MEDS ORDERED: LISINOPRIL 10 MG TABLET PO SCH (09:00)
[2023-12-29] MEDS ORDERED: BACTRIM DS TAB1 EACH PO ×2 (11:03)
[2023-12-29] MEDS ORDERED: AMOX-CLAV 875-1 EACH PO ×2 (11:03)
[2023-12-29] MEDS ORDERED: FENOFIBRATE40 MG PO ×2 (11:04)
[2023-12-29] MEDS ORDERED: LISINOPRIL10 MG PO ×2 (11:04)
[2023-12-29] MEDS ORDERED: FELODIPINE ER2.5 MG PO ×2 (11:04)
[2023-12-29] MEDS ORDERED: EZALLOR SPRINKLE5 MG PO ×2 (11:04)
[2023-12-29] MEDS ORDERED: VANCOMYCIN HCL 5 MG/ML REDILUIDO IV SCH (21:00)
== END 2023-12-29 14:14 | disposition home or self-care (01) | DRG 603 ==
LOC: ER 21:42 → MEDJ 12-25 00:05
PROVIDERS: General Practice; Internal Medicine; ADMIT Internal Medicine; ATTEND Internal Medicine
PROC: BP2 Imaging, Non-Axial Upper Bones, Computerized Tomography (CT Scan) (ICD-10-PCS; principal; 2023-12-28)
DX: L03.114 Cellulitis of left upper limb (principal); I10 Essential (primary) hypertension; E03.9 Hypothyroidism, unspecified